=== PATIENT | female | born 1975 | race Caucasian/White ===

== ENCOUNTER 2019-01-16 13:19 | Emergency (ER) | payer MEDICAID ==
[~2019-01-16] VITALS: Ht 160 cm; Wt 97.5 kg
[2019-01-16 13:37] VITALS: BP_SYST 188
[2019-01-16 15:24] LABS: BILIRUBIN,URINE NEGATIVE (NEGATIVE); BLOOD, URINE 1+ (NEGATIVE); CLARITY/URINE CLEAR (CLEAR); COLOR,URINE YELLOW (YELLOW); GLUCOSE,URINE NEGATIVE (NEGATIVE); KETONES,URINE NEGATIVE (NEGATIVE); LEUKOCYTE ESTERASE ,URINE NEGATIVE (NEGATIVE); NITRITE, URINE NEGATIVE (NEGATIVE); PH,URINE 7.5 (5.0-8.0); PROTEIN URINE NEGATIVE (NEGATIVE); UROBILINOGEN,URINE 0.2 (0.2-1.0)
[2019-01-16 15:32] LABS: BACTERIA,URINE FEW /HPF (None Seen); MUCUS,URINE None Seen /LPF (None Seen); RBC,URINE 0-3 /HPF (0-3); WBC,URINE 0-3 /HPF (0-3)
[2019-01-16 15:51] LABS: BASOPHILS # (AUTO) 0.1 K/uL (0.0-0.2); BASOPHILS % (AUTO) 0.5 % (0.0-2.0); EOSINOPHILS # (AUTO) 0.1 K/uL (0.0-0.4); EOSINOPHILS % (AUTO) 0.4 % (0.0-4.0); HEMATOCRIT 35.4 % (36-48); HEMOGLOBIN 11.6 g/dL (12.0-16.0); LYMPHOCYTES # (AUTO) 2.7 K/uL (1.0-5.5); LYMPHOCYTES % (AUTO) 20.1 % (20.5-51.5); MEAN CORPUSCULAR HEMOGLOBIN 30 pg (27-31); MEAN CORPUSCULAR HGB CONC 33 % (32-36); MEAN CORPUSCULAR VOLUME 90 fL (79.0-98.0); MONOCYTES # (AUTO) 0.8 K/uL (0.0-1.0); MONOCYTES % (AUTO) 5.9 % (1.7-9.3); NEUTROPHILS # (AUTO) 9.9 K/uL (1.8-7.7); NEUTROPHILS % (AUTO) 73.1 % (40.0-70.0); PLATELET COUNT (AUTO) 318 K/uL (130-430); RED BLOOD CELL COUNT(AUTO) 3.93 MIL/uL (4.2-6.2); RED CELL DISTRIBUTION WIDTH 14.6 % (9.0-15.0); WHITE BLOOD COUNT (AUTO) 13.6 K/uL (4.8-10.8)
[2019-01-16 16:07] LABS: CALCIUM 9.2 mg/dL (8.4-11.0); CREATININE 0.65 mg/dL (0.55-1.30); POTASSIUM 4.2 mmol/L (3.5-5.1)
[2019-01-16 16:12] LABS: ALBUMIN 3.7 g/dL (3.4-4.8); TOTAL BILIRUBIN 0.3 mg/dL (0.0-1.0)
--- NOTE | 2019-01-16 16:30 | NUR ---
Patient to ER bed H1 to gown for evaluation. Side rails up.
--- NOTE | 2019-01-16 16:32 | NUR ---
Pt brought by self, A&Ox4, pt presents to ER with L lower quadrant pain and nausea, skin pink and warm, cap refill <3, no N/V noted at this time, VSS, respirations even and unlabored.
--- NOTE | 2019-01-16 16:35 | NUR ---
Dr Fish at bedside examining patient
[2019-01-16] MEDS ORDERED: KETOROLAC TROMETHAMINE 60 MG/2 ML VIAL IM ONE (16:45)
[2019-01-16 17:37] VITALS: BP_SYST 152
--- NOTE | 2019-01-16 17:37 | NUR ---
Patient given written and verbal discharge instructions and verbalizes understanding. ER MD discussed with patient the results and treatment provided. Patient in stable condition. ID arm band removed. Rx of Zofran, Motrin, Imodium, Ponce given. Patient educated on pain management and to follow up with PMD. Pain Scale 2/10 tolerable for pt . Opportunity for questions provided and answered. Medication side effect fact sheet provided.
== END 2019-01-16 17:37 | disposition home or self-care (01) ==
LOC: SED 13:19
DX: R10.32 Left lower quadrant pain (principal); R11.2 Nausea with vomiting, unspecified; R19.7 Diarrhea, unspecified; I10 Essential (primary) hypertension
CPT/HCPCS: 36415; 80053; 81000-TC; 81025; 83690-TC; 85025; 96372; 99284

== ENCOUNTER 2021-12-20 21:30 | Emergency (ER) | payer MEDICAID, OTHER ==
[~2021-12-20] VITALS: Ht 157.5 cm; Wt 89.8 kg
[~2021-12-20 21:30] MED LIST: ASPI-1077 PO; DONE5TAB3 PO; FERR325T30 PO; FOLI-43 PO; LIP40 PO; MEMA5TAB42 PO; MULT-1117 PO; PRO40 PO; TRAZ50TA54 PO; ZAN4 PO
[2021-12-20 22:51] VITALS: BP_SYST 166
[2021-12-21] MEDS ORDERED: hydrALAZINE HCL 20 MG/ML VIAL IVP ONE (01:00)
[2021-12-21] MEDS ORDERED: LORazepam 1 MG TABLET PO ONE (01:15)
[2021-12-21 02:04] LABS: BASOPHILS % (AUTO) 0.3 % (0.0-2.0); EOSINOPHILS % (AUTO) 0.5 % (0.0-4.0); HEMATOCRIT 37.6 % (36-48); LYMPHOCYTES # (AUTO) 2.8 K/uL (1.0-5.5); MEAN CORPUSCULAR HEMOGLOBIN 32 pg (27-31); MEAN CORPUSCULAR HGB CONC 35 % (32-36); MEAN CORPUSCULAR VOLUME 91 fL (79.0-98.0); MONOCYTES # (AUTO) 0.4 K/uL (0.0-1.0); MONOCYTES % (AUTO) 5.6 % (1.7-9.3); NEUTROPHILS # (AUTO) 4.7 K/uL (1.8-7.7); NEUTROPHILS % (AUTO) 58.6 % (40.0-70.0); PLATELET COUNT (AUTO) 269 K/uL (130-430); RED BLOOD CELL COUNT(AUTO) 4.12 MIL/uL (4.2-6.2)
[2021-12-21 02:10] LABS: ANION GAP 13 (5-15); CALCIUM 9.7 mg/dL (8.4-11.0); CHLORIDE 103 mmol/L (98-107); GLUCOSE 103 mg/dL (70-99); UREA NITROGEN, BLOOD 14 mg/dL (8-21)
[2021-12-21 02:15] LABS: GFR AFRICAN AMERICAN 99 mL/min (>90)
[2021-12-21 02:23] LABS: ALANINE AMINOTRANSFERASE 30 U/L (12-78); ASPARTATE AMINOTRANSFERASE 20 U/L (10-37); TOTAL BILIRUBIN 0.2 mg/dL (0.0-1.0)
[2021-12-21 02:38] LABS: PROTHROMBIN TIME 10.4 SECS (9.5-12.5)
[2021-12-21] MEDS ORDERED: ASPIRIN 325 MG TABLET PO ONE (03:00)
[2021-12-21] MEDS ORDERED: POTASSIUM CHLORIDE 20 MEQ/PKT PACKET PO ONE (04:00)
[2021-12-21 04:39] LABS: BILIRUBIN,URINE NEGATIVE (NEGATIVE); BLOOD, URINE 3+ (NEGATIVE); COLOR,URINE RED (YELLOW); GLUCOSE,URINE NEGATIVE (NEGATIVE); KETONES,URINE TRACE (NEGATIVE); LEUKOCYTE ESTERASE ,URINE NEGATIVE (NEGATIVE); NITRITE, URINE NEGATIVE (NEGATIVE); PH,URINE 6.5 (5.0-8.0); PROTEIN URINE 1+ (NEGATIVE); UROBILINOGEN,URINE 0.2 (0.2-1.0)
[2021-12-21 04:41] LABS: CLARITY/URINE HAZY (CLEAR)
[2021-12-21 04:47] LABS: BACTERIA,URINE FEW /HPF (None Seen); MUCUS,URINE 1+ /LPF (None Seen); RBC,URINE 80-100 /HPF (0-3); WBC,URINE 0-3 /HPF (0-3)
[2021-12-21 04:50] LABS: METHAMPHETAMINES SCREEN,URINE POSITIVE (NEG <=500)
[2021-12-21 04:51] LABS: BENZODIAZEPINE, URINE POSITIVE (NEG <=150); OPIATE, URINE POSITIVE (NEG <=100); URINE AMPHETAMINE POSITIVE (NEG <=500)
[2021-12-21 04:52] LABS: BARBITURATE, URINE NEGATIVE (NEG <=200); CANNABINOID, URINE NEGATIVE (NEG <=50); COCAINE, URINE NEGATIVE (NEG <=150); PHENCYCLIDINE SCREEN,URINE NEGATIVE (NEG <=25); UR TRICYCLIC ANTIDEPRESSANTS NEGATIVE (NEG <=300); URINE METHADONE NEGATIVE (NEG <=200); URINE OXYCODONE SCREEN NEGATIVE (NEG <=100); URINE PROPOXYPHENE SCREEN NEGATIVE (NEG <=300)
[2021-12-21 07:32] VITALS: BP_SYST 138
== END 2021-12-21 07:35 | disposition short-term general hospital (02) ==
LOC: SED 21:30
DX: I21.4 Non-ST elevation (NSTEMI) myocardial infarction (principal); R47.1 Dysarthria and anarthria; I15.9 Secondary hypertension, unspecified; E87.6 Hypokalemia; F15.20 Other stimulant dependence, uncomplicated; R06.02 Shortness of breath; Z88.5 Allergy status to narcotic agent; Z88.6 Allergy status to analgesic agent; Z88.8 Allergy status to other drugs, medicaments and biological substances; Z79.899 Other long term (current) drug therapy; Z20.822 Contact with and (suspected) exposure to COVID-19
CPT/HCPCS: 36415; 70450-TC; 71045; 76376; 80053; 80307; 81000; 83880; 84484; 85025; 85610-TC; 85730-TC; 86886; 86900; 86901; 93005; 99291